=== PATIENT | female | born 1965 | race Caucasian/White ===

== ENCOUNTER → 2023-03-02 | Outpatient (CLI) | payer BC ==
[~2023-03-02] VITALS: Ht 162 cm; Wt 81.0 kg
[~2023-03-02] MED LIST: CATHETER FLUSH 10 ML SYR IVP PRN
[2023-03-02 13:48] VITALS: BP 164/94
--- NOTE | 2023-03-02 15:09 | Cardiology Stress Test Report ---
Stress Test Report Date of Procedure/Referring: Date of Procedure: Mar 02, 2023 PCP Marvin Farr MD Admitting Physician Admitting Physician: Attending Physician: Amy Garza MD Baseline Heart Rate: 78 Baseline Blood Pressure: Blood Pressure Systolic: 164 Blood Pressure Diastolic: 94 Vital Signs Date Time Temp Pulse Resp B/P (MAP) Pulse Ox O2 Delivery O2 Flow Rate FiO2 03/02/23 13:48 78 164/94 (117) Baseline Vital Signs Vital Signs Date Time Temp Pulse Resp B/P (MAP) Pulse Ox O2 Delivery O2 Flow Rate FiO2 03/02/23 13:48 78 164/94 (117) Baseline EKG: Baseline EKG: NSR Summary: After explaining the procedure and details to the patient, she signed the consent and was brought to the stress nuclear laboratory. Patient exercised on standard Asael protocol, EKG, heart rate and blood pressure were monitored continuously, resting and stress doses of radio tracer were injected, imaging was acquired and reviewed in the short axis, horizontal long axis and vertical long axis views Patient was able to exercise for a total of 4 minutes on Asael protocol, METs 5.8 Maximum heart rate 162 Maximum blood pressure 218/102 Stress EKG, Minimal nondiagnostic changes Recovery EKG, Return to baseline TID: 0.89 SSS: 2 SDS: 2 EF: 72 Conclusion: Patient was able to exercise for 4 minutes on standard Asael protocol 5.8 METS achieving 99% of maximal expected heart rate Appropriate heart rate response to exercise with hypertensive response to exercise with peak blood pressure 218/102 return to baseline during recovery Nondiagnostic EKG changes with exercise return to baseline during recovery No significant ischemia or infarction noted on SPECT images Normal left ventricular size, ejection fraction 72% Copy Copies To 1: MARVIN FARR MD, BASHAR J MD Mar 02, 2023 15:09
== END ==
LOC: CARD 12:16
PROVIDERS: ATTEND Internal Medicine Cardiovascular Disease
DX: R07.9 Chest pain, unspecified (principal)
CPT/HCPCS: 78452; 93017; A9502